=== PATIENT | female | born 1970 | race Caucasian/White ===

== ENCOUNTER 2024-10-27 15:08 | Emergency (ER) | payer MEDICAID ==
[~2024-10-27] VITALS: Ht 170.2 cm; Wt 54.9 kg
[2024-10-27 15:58] LABS: BASOPHILS # (AUTO) 0.1 K/uL (0.0-0.2); BASOPHILS % (AUTO) 0.9 % (0.0-2.0); EOSINOPHILS % (AUTO) 0.5 % (0.0-6.0); HEMATOCRIT 27 % (33-45); LYMPHOCYTES # (AUTO) 1.7 K/uL (0.8-4.8); MEAN CORPUSCULAR HEMOGLOBIN 37 PG (26.0-33.0); MEAN CORPUSCULAR HGB CONC 33 g/dl (31.0-36.0); MEAN CORPUSCULAR VOLUME 112 fL (82-100); MONOCYTES # (AUTO) 0.5 K/uL (0.1-1.30); MONOCYTES % (AUTO) 8.2 % (2.0-12.0); NEUTROPHILS # (AUTO) 4.2 K/uL (1.8-8.9); NEUTROPHILS % (AUTO) 64.4 % (43.0-81.0); PLATELET COUNT (AUTO) 565 K/uL (150-450); RED BLOOD CELL COUNT(AUTO) 2.45 MIL/uL (4.0-5.2); RED CELL DISTRIBUTION WIDTH 17.4 % (11.5-15.0); WHITE BLOOD COUNT (AUTO) 6.6 K/uL (4.3-11.0)
[2024-10-27] MEDS: IV NS 0.9% 500 ML BAG IV ONE (16:00)
[2024-10-27 16:06] LABS: CALCIUM, SERUM 9.1 mg/dL (8.5-10.1); CREATININE 0.7 mg/dL (0.6-1.3); POTASSIUM 4.2 mmol/L (3.5-5.1)
[2024-10-27 16:12] LABS: ALBUMIN 3.9 g/dL (3.4-5.0); BILIRUBIN,DIRECT 0.1 mg/dL (0.0-0.2); BILIRUBIN,TOTAL 0.3 mg/dL (0.2-1.0); TOTAL PROTEIN, SERUM 7.8 g/dL (6.4-8.2)
[2024-10-27 16:19] LABS: INR 0.9 (0.91-1.10); PARTIAL THROMBOPLASTIN TIME 21.2 SEC (24.3-34.3); PROTHROMBIN TIME 9.3 SECS (9.2-11.1)
[2024-10-27 17:09] VITALS: BP 95/62; TEMP 98.1; O2SAT 100
== END 2024-10-27 17:10 | disposition home or self-care (01) ==
LOC: ER 15:22
DX: R53.1 Weakness (principal); D64.9 Anemia, unspecified; R06.02 Shortness of breath; R53.83 Other fatigue; F17.200 Nicotine dependence, unspecified, uncomplicated; F41.9 Anxiety disorder, unspecified; Z60.2 Problems related to living alone
CPT/HCPCS: 99284; 96360; 93005; 85025; 80048; 80076; 36415; 85730; 86850; J7040